=== PATIENT | male | born 1995 | race Caucasian/White ===

== ENCOUNTER 2024-08-20 06:19 | Day surgery (SDC) | payer BC, SELFPAY ==
[2024-08-20] VITALS (8 sets, daily range): BP systolic 103–151; BP diastolic 59–94; BMI 31.6
[2024-08-20] MEDS: TYLENOL 1000 MG PO (14:10)
--- NOTE | 2024-08-20 15:50 | W.IMMPOSTOP ---
Surgical Immed Post Op Note
-
Primary Surgeon: Faby
Pre-op Diagnosis: Pilonidal disease
Post-op Diagnosis: Same
Procedure Performed: Excision of pilonidal disease
Anesthesia Type: MAC local
Specimen / Cultures: Pilonidal cyst
Estimated Blood Loss: 5cc
Complications: None immediate
Operative Findings: Several pits and cyst, all excised down to posterior fascia, packed with saline moist gauze
--- NOTE | 2024-08-21 10:26 | OR.RPT ---
Operative Report
Operative Report
Primary Surgeon: Faby
Pre-op Diagnosis: Pilonidal disease
Post-op Diagnosis: Same
Procedure Performed: Excision of pilonidal disease (7cm x 4cm x 3cm)
Anesthesia Type: MAC local
Specimen / Cultures: Pilonidal cyst
Estimated Blood Loss: 5cc
Complications: None immediate
Operative Findings: Several pits and cyst, all excised down to posterior fascia, packed with saline moist gauze
Date of Surgery: 08/20/24
Indications: This 28M developed a symptomatic pilonidal disease at his gluteal cleft and excision with healing by secondary intention was elected.
PROCEDURE: After informed consent was obtained, the patient was brought to the operative suite and placed prone on the operating table. The patient was sedated, prepped and draped in the usual sterile manner and an adequate local anesthetic was
administered using a combination of Marcaine and lidocaine with epi.
A full thickness skin incision was made with a #10 blade around the area of concern, and dissection was carried down to the fascia using Bovie electrocautery. The superior portion of the affected tissue was undermined with electrocautery and the
superior aspect of the skin was gasped with an allis clamp and elevated. Cautery was used to develop the plane deep to the affected tissue. Ultimately the entire area of affected skin and subcutaneous tissue encompassing all pits as well as the cyst
itself was excised. There was no rupture of the cyst, no pus nor contamination. The wound was then irrigated with copious sterile saline, and hemostasis was obtained using Bovie electrocautery. The wound was packed with saline moist gauze and
covered with an abd pad and disposable underwear. All surgical counts were reported as correct.
The patient tolerated the procedure well and was taken to the PACU in stable condition.
== END 2024-08-20 17:29 | disposition home or self-care (01) ==
LOC: SDS 06:19
PROVIDERS: ATTENDING PHYSICIAN Surgery
DX: L05.91 Pilonidal cyst without abscess (principal)
CPT/HCPCS: 11771; 88304